=== PATIENT | female | born 2000 | race Caucasian/White ===

== ENCOUNTER 2018-09-10 19:23 | Emergency (ER) | payer MEDICAID ==
[~2018-09-10] VITALS: Ht 157.5 cm; Wt 57.6 kg
[2018-09-10 20:10] VITALS: BP 98/49
--- NOTE | 2018-09-10 21:00 | NUR ---
PATIENT AMBULATED TO ER CHAIR E.
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
[2018-09-10 21:23] VITALS: BP 102/62
--- NOTE | 2018-09-10 21:23 | NUR ---
Patient discharged with v/s stable. Written and verbal after care instructions given and explained. Patient alert, oriented and verbalized understanding of instructions. Ambulatory with steady gait. All questions addressed prior to discharge. ID band removed. Patient advised to follow up with PMD. Rx of KEFLEX 500MG AND ACETAMINOPHEN 325MG given. Patient educated on indication of medication including possible reaction and side effects. Opportunity to ask questions provided and answered.
== END 2018-09-10 21:23 | disposition home or self-care (01) ==
LOC: MED 19:23
DX: L03.115 Cellulitis of right lower limb (principal); L03.116 Cellulitis of left lower limb
CPT/HCPCS: 73562; 99283; Q0092

== ENCOUNTER 2020-07-05 12:48 | Emergency (ER) | payer MEDICAID ==
[~2020-07-05] VITALS: Ht 157.5 cm; Wt 54.9 kg
[2020-07-05 12:50] VITALS: BP 124/93
--- NOTE | 2020-07-05 12:56 | NUR ---
AMBULATED TO BED 7
--- NOTE | 2020-07-05 12:59 | NUR ---
20 Y/O FEMALE C/O SORE THROAT X 5 DAYS. PT DENIES SOB; SPO2 97% RA. CLEAR LUNG SOUNDS HEARD THROUGHOUT, CLEAR TRACHEAL SOUND. BREATHING EVEN AND UNLABORED, SYMMETRICAL CHEST EXPANSION NOTED. PT STATES PRESENCE OF FATIGUE, FEVER, AND CLEAR PHLEGM, DENIES COUGH. AO4, SKIN WARM AND DRY. BED IN LOWEST POSITION, LOCKED, X1 SIDERAIL UP. PMH - DENIED NKA
[2020-07-05] MEDS ORDERED: ACETAMINOPHEN 325 MG TAB PO ONE (13:25)
[2020-07-05] MEDS ORDERED: BENZOCAINE 20% 57 GM CAN MC ONE (13:25)
--- NOTE | 2020-07-05 15:06 | NUR ---
PT IN BED, EYES OPEN, BREATHING EVEN AND UNLABORED, NO APPARENT DISTRESS. WILL CONTINUE TO MONITOR.
--- NOTE | 2020-07-05 15:24 | NUR ---
RAPID STREP A SCREEN AND THROAT CULTURE OBTAINED AND TAKEN TO LAB
--- NOTE | 2020-07-05 16:31 | NUR ---
THROAT CULTURE OBTAINED AND TAKEN TO LAB
[2020-07-05] MEDS ORDERED: ACET-2619 PO (16:33)
[2020-07-05] MEDS ORDERED: CLIN-178 PO (16:33)
[2020-07-05 17:07] VITALS: BP 121/88
--- NOTE | 2020-07-05 17:08 | NUR ---
Patient discharged with v/s stable. Written and verbal after care instructions given and explained. Patient alert, oriented and verbalized understanding of instructions. Ambulatory with steady gait. All questions addressed prior to discharge. ID band removed. Patient advised to follow up with PMD. Rx of TYLENOL AND CLINDAMYCIN given. Patient educated on indication of medication including possible reaction and side effects. Opportunity to ask questions provided and answered.
== END 2020-07-05 17:08 | disposition home or self-care (01) ==
LOC: MED 12:48
DX: J02.9 Acute pharyngitis, unspecified (principal)
CPT/HCPCS: 81025; 87081; 99283

== ENCOUNTER 2020-10-03 15:37 | Emergency (ER) | payer MEDICAID ==
[~2020-10-03] VITALS: Ht 152.4 cm; Wt 54.0 kg
[~2020-10-03 15:37] MED LIST: ACET-2619 PO; CLIN-178 PO
[2020-10-03 15:45] VITALS: BP 112/71
[2020-10-03] MEDS ORDERED: AZITHROMYCIN 250 MG TAB PO ONE (16:35)
[2020-10-03] MEDS ORDERED: cefTRIAXone 500 MG in LIDOCAINE MPF 1% 1 ML IM ONE (16:35)
[2020-10-03] MEDS ORDERED: NAPR-54 PO (16:38)
[2020-10-03] MEDS ORDERED: PYR100 PO (16:38)
[2020-10-03] MEDS ORDERED: CEPH-588 PO (16:38)
[2020-10-03] MEDS ORDERED: cefTRIAXone 500 MG VIAL ONE (16:49)
[2020-10-03] MEDS ORDERED: LIDOCAINE MPF 1% 5 ML ONE (16:50)
[2020-10-03 17:06] VITALS: BP 112/71
== END 2020-10-03 17:10 | disposition home or self-care (01) ==
LOC: MED 15:37
DX: N39.0 Urinary tract infection, site not specified (principal); Z20.2 Contact with and (suspected) exposure to infections with a predominantly sexual mode of transmission; Z79.899 Other long term (current) drug therapy
CPT/HCPCS: 36415; 81002; 81025; 87491; 96372; 99283; J0696; J2001

== ENCOUNTER 2023-02-12 16:37 | Emergency (ER) | payer MEDICAID, OTHER ==
[~2023-02-12] VITALS: Ht 157.5 cm; Wt 64.0 kg
[~2023-02-12 16:37] MED LIST changes: +CEPH-588 PO; -CLIN-178 PO; +CLIN300C52 PO; +NAPR-54 PO; +PYR100 PO
[2023-02-12 16:45] VITALS: BP 104/62; PULSE 81; RESP 18; TEMP 98.6; O2SAT 100
[2023-02-12] MEDS ORDERED: KETOROLAC 60 MG/2 ML VIAL IM ONE (17:05)
== END 2023-02-12 17:45 | disposition home or self-care (01) ==
LOC: MED 16:37
DX: M79.652 Pain in left thigh (principal); Z79.899 Other long term (current) drug therapy
CPT/HCPCS: 96372; 99283; J1885

== ENCOUNTER 2023-09-21 16:03 | Emergency (ER) | payer OTHER ==
[~2023-09-21] VITALS: Ht 154.9 cm; Wt 71.2 kg
[~2023-09-21 16:03] MED LIST changes: +NAPR-337 PO; -NAPR-54 PO
[2023-09-21 16:28] VITALS: BP 115/57; PULSE 73; RESP 18; TEMP 97.1; O2SAT 100
[2023-09-21 17:27] LABS: BILIRUBIN,URINE NEGATIVE (NEGATIVE); BLOOD, URINE 3+ (NEGATIVE); COLOR,URINE YELLOW (YELLOW); LEUKOCYTE ESTERASE ,URINE TRACE (NEGATIVE); NITRITE, URINE NEGATIVE (NEGATIVE); PROTEIN,URINE TRACE (NEGATIVE); UGLUCOSE NEGATIVE (NEGATIVE); UROBILINOGEN,URINE 0.2 EU/dL (0.2 - 1)
[2023-09-21 17:29] LABS: APPEARANCE,URINE SLIGHTLY HAZY (CLEAR)
[2023-09-21 17:30] LABS: WBC,URINE 0-5 /HPF (0-5)
[2023-09-21 17:31] LABS: BACTERIA,URINE 1+ /HPF (None Seen); MUCUS,URINE None Seen /LPF (None Seen); SQUAMOUS EPITHELIAL CELL,UR 0-3 (FEW) /LPF (0-3 (FEW))
[2023-09-21] MEDS ORDERED: CEPH-588 PO (18:52)
[2023-09-21] MEDS ORDERED: CARB15DR61 OT (18:52)
== END 2023-09-21 18:58 | disposition home or self-care (01) ==
LOC: MED 16:03
DX: N39.0 Urinary tract infection, site not specified (principal); H61.21 Impacted cerumen, right ear; Z79.1 Long term (current) use of non-steroidal anti-inflammatories (NSAID); Z79.2 Long term (current) use of antibiotics; Z79.899 Other long term (current) drug therapy
CPT/HCPCS: 36415; 81001; 87491; 99283